=== PATIENT | female | born 2000 | race Caucasian/White ===

== ENCOUNTER 2019-03-08 09:33 | Emergency (ER) | payer MEDICAID, OTHER ==
[~2019-03-08] VITALS: Ht 162.6 cm; Wt 43.6 kg
--- NOTE | 2019-03-08 10:54 | NUR ---
DR KERN AT BS
[2019-03-08 10:56] LABS: BASOPHILS # (AUTO) 0.1 X10'3 (0-0.2); BASOPHILS % (AUTO) 0.7 % (0-1); EOSINOPHILS % (AUTO) 0.4 % (0-6); HEMATOCRIT 39.5 % (35.0-45.0); HEMOGLOBIN 13.4 g/dl (12.0-16.0); LYMPHOCYTES # (AUTO) 1.9 X10'3 (1.1-4.8); LYMPHOCYTES % (AUTO) 22.7 % (21-51); MEAN CORPUSCULAR HEMOGLOBIN 30.2 PG (27.0-31.0); MEAN CORPUSCULAR HGB CONC 33.8 g/dL (33.0-36.5); MEAN CORPUSCULAR VOLUME 89.2 FL (78-98); MEAN PLATELET VOLUME 11.5 FL (7.4-10.4); MONOCYTES # (AUTO) 0.6 X10'3 (0-0.9); MONOCYTES % (AUTO) 7.4 % (2-12); NEUTROPHILS # (AUTO) 5.6 X10'3 (1.8-7.7); NEUTROPHILS % (AUTO) 68.8 % (42-75); PLATELET COUNT 140 X10'3 (140-440); RED BLOOD COUNT 4.43 X10'6 (4.20-5.60); RED CELL DISTRIBUTION WIDTH 12.8 % (11.5-14.5); WHITE BLOOD COUNT 8.2 X10'3 (4.5-11.0)
[2019-03-08 11:11] LABS: ALANINE AMINOTRANSFERASE 21 U/L (12-78); ALBUMIN 3.9 G/DL (3.4-5.0); ALBUMIN/GLOBULIN RATIO 1.1 (1.1-1.5); ALKALINE PHOSPHATASE 48 IU/L (20-180); ANION GAP 9 (8-16); ASPARTATE AMINO TRANSFERASE 18 U/L (10-37); BILIRUBIN,TOTAL 0.5 MG/DL (0.1-1.0); BLOOD UREA NITROGEN 9 MG/DL (7-18); BUN/CREATININE RATIO 13.2 (6.6-38.0); CALCIUM 8.9 MG/DL (8.5-10.1); CHLORIDE 104 MMOL/L (99-107); CREATININE 0.68 MG/DL (0.40-0.90); GLUCOSE 84 MG/DL (70-104); LIPASE < 50 U/L (73-393); POTASSIUM 3.5 MMOL/L (3.5-5.1); SODIUM 139 MMOL/L (135-145); TOTAL CARBON DIOXIDE 25.7 MMOL/L (24-32); TOTAL PROTEIN 7.5 G/DL (6.4-8.2); eGFR > 90 ML/MIN
[2019-03-08 11:27] LABS: LARGE PLATELETS FEW; PLATELET ESTIMATE DECREASED
[2019-03-08 11:33] LABS: CLARITY,URINE SLIGHTLY CLOUDY (Clear); COLOR,URINE YELLOW (Yellow); GLUCOSE, URINE NEGATIVE (Neg); KETONES,URINE TRACE mg/dl (Neg); LEUKOCYTE ESTERASE ,URINE MODERATE (Neg); NITRITES, URINE NEGATIVE (Neg); OCCULT BLOOD,URINE TRACE-LYSED (Neg); PROTEIN,URINE NEGATIVE (Neg); UROBILINOGEN,URINE 0.2 E.U/dL (0.2-1.0)
[2019-03-08 11:35] LABS: URINE HCG NEGATIVE (NEG)
[2019-03-08 11:39] LABS: UA COLLECTION TYPE CLN CATCH MIDSTREAM
[2019-03-08 11:40] LABS: SQUAMOUS EPITHELIAL CELL,UR MODERATE /LPF (FEW)
[2019-03-08 11:41] LABS: RBC,URINE 0-2 /HPF (0-2); WBC,URINE 0-4 /HPF (0-4)
[2019-03-08 11:44] LABS: RENAL CELLS, URINE FEW /HPF
[2019-03-08 11:45] LABS: BACTERIA,URINE FEW /HPF (Neg)
[2019-03-08 12:09] VITALS: BP 109/64
== END 2019-03-08 12:29 | disposition home or self-care (01) ==
LOC: ER 09:34
DX: R55 Syncope and collapse (principal); R11.2 Nausea with vomiting, unspecified; R10.9 Unspecified abdominal pain; F31.9 Bipolar disorder, unspecified; F12.90 Cannabis use, unspecified, uncomplicated
CPT/HCPCS: 36415; 71045; 80053; 81001; 81025; 82948; 83690; 85025; 87088; 93005; 99284

== ENCOUNTER → 2019-12-20 | Emergency (ER) | payer OTHER ==
[~2019-12-20] VITALS: Ht 162.6 cm; Wt 55.0 kg
[~2019-12-20] MED LIST: LIDOcaine Viscous 15ml cup MM PRN; SUCR1TAB34 PO; famotidine/PF 10 mg/ml inj IV ONE; mag hydrox/Alum hydrox/simeth 30ml oral suspension PO ONE; metoclopramide 5 mg/ml inj IV ONE; pantoprazole 40 MG vial IV ONE; sucralfate 1gm/10ml UD suspension PO SCH
[2019-12-20 02:58] VITALS: BP 123/65
== END | disposition home or self-care (01) ==
LOC: ER 02:54
DX: K29.00 Acute gastritis without bleeding (principal); R10.13 Epigastric pain; K21.9 Gastro-esophageal reflux disease without esophagitis; R11.2 Nausea with vomiting, unspecified; F31.9 Bipolar disorder, unspecified; F12.90 Cannabis use, unspecified, uncomplicated; Z79.899 Other long term (current) drug therapy; Z72.0 Tobacco use
CPT/HCPCS: 96374; 96375; 99284; C9113; J2765; J3490

== ENCOUNTER 2020-10-22 16:12 | Emergency (ER) | payer OTHER, BC ==
[~2020-10-22] VITALS: Ht 162.6 cm; Wt 67.5 kg
[~2020-10-22 16:12] MED LIST changes: -LIDOcaine Viscous 15ml cup MM PRN; -famotidine/PF 10 mg/ml inj IV ONE; -mag hydrox/Alum hydrox/simeth 30ml oral suspension PO ONE; -metoclopramide 5 mg/ml inj IV ONE; -pantoprazole 40 MG vial IV ONE; -sucralfate 1gm/10ml UD suspension PO SCH
[2020-10-22 16:16] VITALS: BP 122/75
[2020-10-22 17:01] LABS: BASOPHILS % (AUTO) 0.2 % (0-1); EOSINOPHILS # (AUTO) 0.1 X10'3 (0-0.9); EOSINOPHILS % (AUTO) 0.6 % (0-6); HEMATOCRIT 44.8 % (35.0-45.0); HEMOGLOBIN 15.1 g/dl (12.0-16.0); LYMPHOCYTES # (AUTO) 1.8 X10'3 (1.1-4.8); LYMPHOCYTES % (AUTO) 16.8 % (21-51); MEAN CORPUSCULAR HEMOGLOBIN 30.9 PG (27.0-31.0); MEAN CORPUSCULAR HGB CONC 33.7 g/dL (33.0-36.5); MEAN CORPUSCULAR VOLUME 91.8 FL (78-98); MEAN PLATELET VOLUME 11.9 FL (7.4-10.4); MONOCYTES # (AUTO) 0.9 X10'3 (0-0.9); MONOCYTES % (AUTO) 8.4 % (2-12); NEUTROPHILS # (AUTO) 7.9 X10'3 (1.8-7.7); PLATELET COUNT 166 X10'3 (140-440); RED BLOOD COUNT 4.88 X10'6 (4.20-5.60); RED CELL DISTRIBUTION WIDTH 13.1 % (11.5-14.5); WHITE BLOOD COUNT 10.7 X10'3 (4.5-11.0)
[2020-10-22 17:17] LABS: ALANINE AMINOTRANSFERASE 35 U/L (12-78); ALBUMIN 4.7 G/DL (3.4-5.0); ALBUMIN/GLOBULIN RATIO 1.2 (1.1-1.5); ALKALINE PHOSPHATASE 73 IU/L (46-116); ANION GAP 11 (8-16); ASPARTATE AMINO TRANSFERASE 23 U/L (10-37); BILIRUBIN,TOTAL 0.5 MG/DL (0.1-1.0); BLOOD UREA NITROGEN 10 MG/DL (7-18); BUN/CREATININE RATIO 14.1 (6.6-38.0); CALCIUM 9.1 MG/DL (8.5-10.1); CHLORIDE 104 MMOL/L (99-107); CREATININE 0.71 MG/DL (0.40-0.90); GLUCOSE 83 MG/DL (70-104); LIPASE < 50 U/L (73-393); POTASSIUM 3.9 MMOL/L (3.5-5.1); SODIUM 143 MMOL/L (135-145); TOTAL CARBON DIOXIDE 28.1 MMOL/L (24-32); TOTAL PROTEIN 8.5 G/DL (6.4-8.2); eGFR > 90 ML/MIN
[2020-10-22] MEDS ORDERED: PANT20TA18 PO (19:37)
[2020-10-22] MEDS ORDERED: pantoprazole 40mg Tablet.DR PO SCH (19:45)
[2020-10-23] MEDS ORDERED: pantoprazole 40mg Tablet.DR PO SCH (07:30)
== END 2020-10-22 19:54 | disposition home or self-care (01) ==
LOC: ER 16:12
DX: R11.10 Vomiting, unspecified (principal); K21.9 Gastro-esophageal reflux disease without esophagitis; Z72.0 Tobacco use
CPT/HCPCS: 36415; 80053; 83690; 85025; 99283

== ENCOUNTER 2022-10-12 10:02 | Emergency (ER) | payer MEDICAID ==
[~2022-10-12] VITALS: Ht 162.6 cm; Wt 68.4 kg
[~2022-10-12 10:02] MED LIST changes: +PANT20TA18 PO
[2022-10-12 10:43] VITALS: BP 115/69
== END 2022-10-12 14:41 | disposition left against medical advice (07) ==
LOC: ER 10:02
DX: R10.9 Unspecified abdominal pain (principal); Z53.21 Procedure and treatment not carried out due to patient leaving prior to being seen by health care provider
CPT/HCPCS: 99281

== ENCOUNTER 2023-08-16 11:22 | Emergency (ER) | payer MEDICAID ==
[~2023-08-16] VITALS: Ht 162.6 cm; Wt 67.2 kg
[2023-08-16] MEDS ORDERED: ARIP30TA3 PO (12:53)
[2023-08-16] MEDS ORDERED: CITA40TA22 PO (12:53)
[2023-08-16] MEDS: diazepam 5mg tablet PO ONE (13:58)
[2023-08-16 14:00] LABS: EOSINOPHILS # (AUTO) 0.1 X10'3 (0-0.9); WHITE BLOOD COUNT 10.5 X10'3 (4.5-11.0)
[2023-08-16 14:02] LABS: BASOPHILS # (AUTO) 0.1 X10'3 (0-0.2); BASOPHILS % (AUTO) 0.7 % (0-1); EOSINOPHILS % (AUTO) 0.6 % (0-6); HEMATOCRIT 36.7 % (35.0-45.0); LYMPHOCYTES # (AUTO) 2.6 X10'3 (1.1-4.8); LYMPHOCYTES % (AUTO) 24.6 % (21-51); MEAN CORPUSCULAR HEMOGLOBIN 29.7 PG (27.0-31.0); MEAN CORPUSCULAR HGB CONC 32.7 g/dL (33.0-36.5); MEAN CORPUSCULAR VOLUME 90.8 FL (78-98); MEAN PLATELET VOLUME 10.7 FL (7.4-10.4); MONOCYTES # (AUTO) 0.7 X10'3 (0-0.9); MONOCYTES % (AUTO) 6.9 % (2-12); NEUTROPHILS # (AUTO) 7.1 X10'3 (1.8-7.7); NEUTROPHILS % (AUTO) 67.2 % (42-75); RED BLOOD COUNT 4.04 X10'6 (4.20-5.60); RED CELL DISTRIBUTION WIDTH 13.8 % (11.5-14.5)
[2023-08-16 14:19] LABS: URINE HCG NEGATIVE (NEG)
[2023-08-16 14:32] LABS: ALBUMIN 3.6 G/DL (3.4-5.0); ANION GAP 4 (8-16); BLOOD UREA NITROGEN 6 MG/DL (7-18); BUN/CREATININE RATIO 9.7 (10.0-20.0); CALCIUM 8.8 MG/DL (8.5-10.1); CHLORIDE 105 MMOL/L (99-107); CREATININE 0.62 MG/DL (0.40-0.90); ETHANOL < 10 MG/DL (<10); GLUCOSE 87 MG/DL (70-104); POTASSIUM 3.5 MMOL/L (3.5-5.1); SODIUM 141 MMOL/L (135-145); THYROID STIMULATING HORMONE 1.18 ulU/ml (0.34-4.50); TOTAL CARBON DIOXIDE 32.1 MMOL/L (24-32); URINE AMPHETAMINE SCREEN NEGATIVE (Neg); URINE BARBITUATE SCREEN NEGATIVE (Neg); URINE BENZODIAZEPINES SCREEN NEGATIVE (Neg); URINE CANNABINOID SCREEN POSITIVE (Neg); URINE COCAINE SCREEN NEGATIVE (Neg); URINE METHADONE SCREEN NEGATIVE (Neg); URINE OPIATE SCREEN NEGATIVE (Neg); URINE PHENCYCLIDINE SCREEN NEGATIVE (Neg); eCRCL 121 ML/MIN; eGFR > 90 ML/MIN
[2023-08-16 14:37] LABS: ACETAMINOPHEN < 2.0 UG/ML (10-30)
[2023-08-16 14:44] LABS: PLATELET COUNT 13 X10'3 (140-440)
[2023-08-16 21:02] VITALS: BP 104/67; PULSE 79; RESP 14; O2SAT 98
[2023-08-16] MEDS: citalopram 20mg tablet PO ONE (21:44)
[2023-08-16] MEDS: temazepam 15mg capsule PO PRN (21:47)
[2023-08-16] MEDS: aripiprazole 5mg tablet PO ONE (21:49)
[2023-08-17 07:44] LABS: BILIRUBIN,URINE NEGATIVE (Neg); CLARITY,URINE CLEAR (Clear); COLOR,URINE YELLOW (Yellow); GLUCOSE, URINE NEGATIVE (Neg); KETONES,URINE NEGATIVE (Neg); LEUKOCYTE ESTERASE ,URINE TRACE (Neg); NITRITES, URINE NEGATIVE (Neg); OCCULT BLOOD,URINE NEGATIVE (Neg); PROTEIN,URINE NEGATIVE (Neg); UROBILINOGEN,URINE 0.2 E.U/dL (0.2-1.0)
[2023-08-17 07:47] LABS: UA COLLECTION TYPE CLN CATCH MIDSTREAM
[2023-08-17 07:56] LABS: SQUAMOUS EPITHELIAL CELL,UR MANY /LPF (FEW)
[2023-08-17 07:57] LABS: BACTERIA,URINE 1+ /HPF (Neg); RBC,URINE 0-2 /HPF (0-2); TRANSITIONAL EPI CELLS,URINE FEW /HPF; WBC,URINE 0-4 /HPF (0-4)
[2023-08-17] MEDS: ARIPIPRAZOLE 15 MG TABLET PO SCH (08:30)
[2023-08-17] MEDS: citalopram 20mg tablet PO SCH (08:30)
[2023-08-17 09:51] LABS: BASOPHILS # (AUTO) 0.1 X10'3 (0-0.2); EOSINOPHILS # (AUTO) 0.1 X10'3 (0-0.9); HEMOGLOBIN 11.7 g/dl (12.0-16.0); MONOCYTES # (AUTO) 0.6 X10'3 (0-0.9); NEUTROPHILS # (AUTO) 4.4 X10'3 (1.8-7.7); RED CELL DISTRIBUTION WIDTH 13.7 % (11.5-14.5); WHITE BLOOD COUNT 7.9 X10'3 (4.5-11.0)
[2023-08-17 09:52] LABS: BASOPHILS % (AUTO) 1.1 % (0-1); EOSINOPHILS % (AUTO) 1.6 % (0-6); HEMATOCRIT 35.5 % (35.0-45.0); LYMPHOCYTES # (AUTO) 2.6 X10'3 (1.1-4.8); LYMPHOCYTES % (AUTO) 33.6 % (21-51); MEAN CORPUSCULAR HEMOGLOBIN 29.6 PG (27.0-31.0); MEAN CORPUSCULAR VOLUME 89.7 FL (78-98); MEAN PLATELET VOLUME 10.5 FL (7.4-10.4); MONOCYTES % (AUTO) 7.8 % (2-12); NEUTROPHILS % (AUTO) 55.9 % (42-75); RED BLOOD COUNT 3.96 X10'6 (4.20-5.60)
[2023-08-17 10:18] LABS: PLATELET COUNT 12 X10'3 (140-440)
[2023-08-17] MEDS ORDERED: dexamethasone 4mg tablet PO ONE (11:35)
[2023-08-17] MEDS: dexamethasone sod phosphate 10mg/ml inj IV STA (12:15)
[2023-08-17 17:14] LABS: ALANINE AMINOTRANSFERASE 22 U/L (12-78); ALBUMIN/GLOBULIN RATIO 0.9 (1.1-1.5); ALKALINE PHOSPHATASE 69 IU/L (46-116); ASPARTATE AMINO TRANSFERASE 20 U/L (10-37); BILIRUBIN,DIRECT 0.1 MG/DL (0-0.3); BILIRUBIN,TOTAL 0.2 MG/DL (0.1-1.0); TOTAL PROTEIN 7.6 G/DL (6.4-8.2)
[2023-08-17 19:03] LABS: APTT 29 SECONDS (22-32); PROTHROMBIN TIME 10.8 SECONDS (9.0-12.0)
[2023-08-17] MEDS: predniSONE 20 mg tablet PO SCH (19:05)
[2023-08-18 02:03] VITALS: TEMP 98.7
== END 2023-08-17 23:00 | disposition short-term general hospital (02) ==
LOC: ER 11:22
DX: O99.345 Other mental disorders complicating the puerperium (principal); F32.A Depression, unspecified; K21.9 Gastro-esophageal reflux disease without esophagitis; F12.90 Cannabis use, unspecified, uncomplicated; Z88.1 Allergy status to other antibiotic agents; Z20.822 Contact with and (suspected) exposure to COVID-19
CPT/HCPCS: 36415; 80048; 80076; 80305; 80320; 80329; 81001; 81025; 84443; 85025; 85610; 85730; 87811; 96374; 99285; J1100; J7512

== ENCOUNTER 2025-01-06 14:09 | Emergency (ER) | payer MEDICAID ==
[~2025-01-06] VITALS: Ht 162.6 cm; Wt 79.3 kg
[~2025-01-06 14:09] MED LIST changes: +ARIP30TA3 PO; +CITA40TA22 PO; -PANT20TA18 PO; -SUCR1TAB34 PO
[2025-01-06 14:20] VITALS: BP 148/83; PULSE 104; RESP 18; TEMP 97.6; O2SAT 97
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
[2025-01-06 14:37] LABS: MEAN PLATELET VOLUME 11.4 FL (7.4-10.4); RED CELL DISTRIBUTION WIDTH 13.7 % (11.5-14.5)
[2025-01-06 15:00] LABS: CREATININE 0.82 MG/DL (0.40-0.90); PRO BRAIN NATRIURETIC PEPTIDE < 30 PG/ML (0-125); TOTAL CARBON DIOXIDE 28.7 MMOL/L (24-32); eCRCL 91 ML/MIN; eGFR 85 ML/MIN
[2025-01-06 15:44] LABS: EOSINOPHILS % (MANUAL) 2.0 % (0-6); LYMPHOCYTES % (MANUAL) 44.0 % (21-51); MONOCYTES % (MANUAL) 13.0 % (2-12); NEUTROPHILS % (MANUAL) 39.0 % (42-75); REACTIVE LYMPHOCYTES % 2.0 % (0-0)
[2025-01-06 15:45] LABS: PLATELET ESTIMATE NORMAL
--- NOTE | 2025-01-06 15:57 | ELECTROCARDIOGRAPH REPORT ---
[facility] Test Date: 2025-01-06 Test Time: 14:15:19 Pat Name: AGUSTIN THOMAS Department: EMERGENCY ROOM Room: Gender: F Virtual Office Assistant: LAVINIA : 2000 Requested By: PHOEBE WRIGHT Order Number: [id number] Reading MD: Measurements Intervals [place] Rate: 108 P: 75 KS: 150 QRS: 107 QRSD: 107 T: -5 QT: 324 QTc: 435 Interpretive Statements Sinus tachycardia Probable left atrial enlargement Borderline right axis deviation Borderline T abnormalities, diffuse leads Please click the below link to view image of tracing.
--- NOTE | 2025-01-06 17:45 | RADIOLOGY REPORT ---
CHEST RADIOGRAPH Indication: CP Technique: DI CHEST,SINGLE VIEW Comparison: None FINDINGS: The cardiac silhouette is unremarkable. The lungs demonstrate no pulmonary airspace consolidation. The pulmonary vasculature is unremarkable. There is no pleural effusion. There is no pneumothorax. IMPRESSION: No pulmonary airspace consolidation.
== END 2025-01-06 19:42 | disposition left against medical advice (07) ==
LOC: ER 14:10
DX: R42 Dizziness and giddiness (principal); R55 Syncope and collapse; R51.9 Headache, unspecified; K21.9 Gastro-esophageal reflux disease without esophagitis; F12.90 Cannabis use, unspecified, uncomplicated; F31.9 Bipolar disorder, unspecified; Z88.1 Allergy status to other antibiotic agents; Z79.899 Other long term (current) drug therapy; Z53.21 Procedure and treatment not carried out due to patient leaving prior to being seen by health care provider
CPT/HCPCS: 36415; 71045; 80048; 83880; 84484; 85007; 85025; 93005; 99285